=== PATIENT | female | born 1990 | race African-American/Black ===

== ENCOUNTER 2019-12-28 18:56 | Emergency (ER) | payer MEDICARE ==
[~2019-12-28] VITALS: Ht 167.6 cm; Wt 111.0 kg
[2019-12-28] MEDS ORDERED: ACETAMINOPHEN 325MG TABLET PO PRN (20:45)
[2019-12-28 20:59] LABS: CLARITY URINE CLEAR (CLEAR); COLOR URINE DARK YELLOW (YELLOW); KETONES URINE TRACE (NEGATIVE); LEUKOCYTE ESTERASE URINE NEGATIVE (NEGATIVE); NITRITE URINE NEGATIVE (NEGATIVE); OCCULT BLOOD URINE NEGATIVE (NEGATIVE); PH URINE 6.5 (4.5-8.0); PROTEIN URINE TRACE (NEGATIVE); SPECIFIC GRAVITY URINE 1.037 (1.005-1.030)
[2019-12-28 22:15] LABS: BASOPHILS % 0.5 % (0.0-2.0); EOSINOPHILS % 0.7 % (0.0-5.0); HEMATOCRIT. 36.3 % (36.0-48.0); HEMOGLOBIN. 12.4 g/dL (12.0-16.0); LYMPHOCYTES % 23.7 % (20.0-50.0); MEAN CORPUSCULAR HEMOGLOBIN 28.1 pg (28.0-32.0); MEAN CORPUSCULAR VOLUME 82.7 fL (81.0-99.0); MEAN PLATELET VOLUME 8.6 fl (7.4-10.4); MONOCYTES % 7.8 % (2.0-8.0); NEUTROPHILS % 67.3 % (40.0-76.0); PLATELET 275 x1000/uL (130-400); RED BLOOD CELL COUNT 4.39 mill/uL (4.2-5.4); RED CELL DISTRIBUTION WIDTH 13.8 % (11.6-14.6)
[2019-12-28 22:22] LABS: CHLORIDE 103 mEq/L (98-107)
[2019-12-28 22:45] LABS: B-HCG QUANTITATIVE 28366 mIU/mL (<3)
[2019-12-28 23:16] VITALS: BP 121/71
== END 2019-12-28 23:17 | disposition home or self-care (01) ==
LOC: ER 18:56
DX: O26.892 Other specified pregnancy related conditions, second trimester (principal); R10.33 Periumbilical pain; Z3A.17 17 weeks gestation of pregnancy; Z90.49 Acquired absence of other specified parts of digestive tract
CPT/HCPCS: 36415; 76805; 80053; 81003; 81025; 84702; 85025; 99284

== ENCOUNTER 2020-01-31 21:06 | Emergency (ER) | payer MEDICARE ==
[~2020-01-31] VITALS: Ht 167.6 cm; Wt 113.0 kg
[2020-01-31 21:15] VITALS: BP 113/68
[2020-01-31] MEDS ORDERED: ACETAMINOPHEN 500MG TABLET PO ONE (23:00)
[2020-01-31] MEDS ORDERED: DIPHENHYDRAMINE 50MG CAPSULE PO ONE (23:00)
[2020-01-31] MEDS ORDERED: PROCHLORPERAZINE MALEATE 10MG TABLET PO ONE (23:00)
== END 2020-01-31 23:19 | disposition home or self-care (01) ==
LOC: ER 21:06
DX: O34.32 Maternal care for cervical incompetence, second trimester (principal); Z3A.17 17 weeks gestation of pregnancy; Z90.49 Acquired absence of other specified parts of digestive tract
CPT/HCPCS: 81025; 99284; Q0163; Q0164

== ENCOUNTER 2020-02-05 18:31 | Emergency (ER) | payer MEDICARE ==
[~2020-02-05] VITALS: Ht 167.6 cm; Wt 113.0 kg
[2020-02-05] MEDS ORDERED: PREN-183 PO (18:39)
[2020-02-05] MEDS ORDERED: ACET-2708 PO (18:39)
[2020-02-05] MEDS ORDERED: SODIUM CHLORIDE 0.9% 1,000 ML IV ONE (19:46)
[2020-02-05] MEDS ORDERED: DIPHENHYDRAMINE 50MG/ML VIAL IV ONE (20:00)
[2020-02-05] MEDS ORDERED: METOCLOPRAMIDE HCL 10MG/2ML VIAL IV ONE (20:00)
[2020-02-05 20:13] LABS: CLARITY URINE CLEAR (CLEAR); COLOR URINE YELLOW (YELLOW); KETONES URINE NEGATIVE (NEGATIVE); LEUKOCYTE ESTERASE URINE NEGATIVE (NEGATIVE); NITRITE URINE NEGATIVE (NEGATIVE); OCCULT BLOOD URINE NEGATIVE (NEGATIVE); PROTEIN URINE NEGATIVE (NEGATIVE); SPECIFIC GRAVITY URINE 1.018 (1.005-1.030); UROBILINOGEN URINE 0.2 E.U./dL (0.2-1.0)
[2020-02-05 20:22] LABS: BASOPHILS % 0.5 % (0.0-2.0); EOSINOPHILS % 0.7 % (0.0-5.0); HEMATOCRIT. 38.1 % (36.0-48.0); HEMOGLOBIN. 12.9 g/dL (12.0-16.0); LYMPHOCYTES % 19.7 % (20.0-50.0); MEAN CORPUSCULAR HEMOGLOBIN 28.2 pg (28.0-32.0); MEAN CORPUSCULAR VOLUME 83.2 fL (81.0-99.0); MEAN PLATELET VOLUME 8.5 fl (7.4-10.4); MONOCYTES % 6.5 % (2.0-8.0); NEUTROPHILS % 72.6 % (40.0-76.0); PLATELET 309 x1000/uL (130-400); RED BLOOD CELL COUNT 4.59 mill/uL (4.2-5.4); RED CELL DISTRIBUTION WIDTH 14.7 % (11.6-14.6)
[2020-02-05 20:24] LABS: CHLORIDE 103 mEq/L (98-107)
[2020-02-05 20:26] LABS: PROTHROMBIN TIME 10.2 sec (9.6-11.0)
[2020-02-06] MEDS ORDERED: ACETAMINOPHEN 500MG TABLET PO ONE (00:45)
[2020-02-06] MEDS ORDERED: ACETAMINOPHEN 325MG TABLET PO ONE ×2 (07:15→13:30)
[2020-02-07] MEDS ORDERED: ACETAMINOPHEN 325MG TABLET PO ONE (07:45)
[2020-02-07 10:52] VITALS: BP 101/55
== END 2020-02-07 10:54 | disposition short-term general hospital (02) ==
LOC: ER 18:31
DX: O26.892 Other specified pregnancy related conditions, second trimester (principal); D35.2 Benign neoplasm of pituitary gland; Z3A.22 22 weeks gestation of pregnancy; Z03.818 Encounter for observation for suspected exposure to other biological agents ruled out; Z90.49 Acquired absence of other specified parts of digestive tract
CPT/HCPCS: 36415; 70450; 70551; 80053; 80307; 81003; 85025; 85610; 93005; 96374; 96375; 99285; C9803; J1200; J2765; J7030; U0003